=== PATIENT | male | born 1955 | race Caucasian/White ===

== ENCOUNTER 2018-05-23 14:19 | Emergency (ER) | payer BC ==
[~2018-05-23] VITALS: Ht 180.3 cm; Wt 129.5 kg
[~2018-05-23 14:19] MED LIST: ADLT ASA LOW81 MG PO; ALEVE220 M1 PO; BL IBUPROFEN200 MG PO; EQ ASPIRIN ADUL81 MG OR; LISINOPRIL5 MG PO; NAPROXEN500 MG PO; TRAZODONE50 MG PO
[2018-05-23] MEDS ORDERED: BACITRACIN3.5 GM TOP (14:31)
[2018-05-23 14:55] VITALS: BP 160/81
== END 2018-05-23 15:08 | disposition home or self-care (01) | DRG 935 ==
LOC: ED 14:19
PROC: 2W2DX4Z Dressing of Left Lower Arm using Bandage (ICD-10-PCS; principal; 2018-05-23)
PROC: 2W2QX4Z Dressing of Right Lower Leg using Bandage (ICD-10-PCS; 2018-05-23)
DX: T22.212A Burn of second degree of left forearm, initial encounter (principal); T25.211A Burn of second degree of right ankle, initial encounter; T31.0 Burns involving less than 10% of body surface; X12.XXXA Contact with other hot fluids, initial encounter; Y93.G3 Activity, cooking and baking; Y92.000 Kitchen of unspecified non-institutional (private) residence as the place of occurrence of the external cause

== ENCOUNTER 2023-03-22 15:04 | Emergency (ER) | payer MEDICARE, BC ==
[~2023-03-22] VITALS: Ht 177.8 cm; Wt 117.9 kg
[~2023-03-22 15:04] MED LIST changes: +BACITRACIN3.5 GM TOP
[2023-03-22] MEDS ORDERED: HYDROCHLOROT25 MG PO (15:28)
[2023-03-22] MEDS ORDERED: LISINOPRIL20 M1 PO (15:28)
[2023-03-22 15:47] VITALS: BP 115/64
[2023-03-22 16:01] VITALS: BP 124/63
[2023-03-22 16:15] VITALS: BP 123/62
[2023-03-22] MEDS ORDERED: BACTRIM DS1 TAB PO (17:01)
[2023-03-22 17:10] VITALS: BP 123/62
== END 2023-03-22 17:11 | disposition home or self-care (01) ==
LOC: ED 15:04
PROC: 0HQGXZZ Repair Left Hand Skin, External Approach (ICD-10-PCS; principal; 2023-03-22)
DX: S61.412A Laceration without foreign body of left hand, initial encounter (principal); I10 Essential (primary) hypertension; W29.8XXA Contact with other powered hand tools and household machinery, initial encounter